=== PATIENT | female | born 1970 | race African-American/Black ===

== ENCOUNTER 2019-06-25 21:44 | Inpatient (IN) | payer MEDICAID ==
[~2019-06-25] VITALS: Ht 165.1 cm; Wt 78.0 kg
[2019-06-25 22:31] LABS: HEMATOCRIT. 39.6 % (36.0-48.0); HEMOGLOBIN. 12.5 g/dL (12.0-16.0); MEAN CORPUSCULAR HEMOGLOBIN 25.3 pg (28.0-32.0); MEAN PLATELET VOLUME 8.5 fl (7.4-10.4); PLATELET 267 x1000/uL (130-400); RED BLOOD CELL COUNT 4.95 mill/uL (4.2-5.4); RED CELL DISTRIBUTION WIDTH 13.8 % (11.6-14.6)
[2019-06-25 22:38] LABS: CHLORIDE 84 mEq/L (98-107)
[2019-06-25 22:41] LABS: HCG SCREEN NEGATIVE
[2019-06-25 22:42] LABS: ETHANOL BLOOD < 10 mg/dL
[2019-06-25 23:14] LABS: NUCLEATED RED BLOOD CELLS 2 /100 WBC; PLATELET ESTIMATE NORMAL
[2019-06-25 23:15] LABS: COLOR URINE YELLOW (YELLOW); KETONES URINE TRACE (NEGATIVE); LEUKOCYTE ESTERASE URINE NEGATIVE (NEGATIVE); NITRITE URINE NEGATIVE (NEGATIVE); OCCULT BLOOD URINE 1+ (NEGATIVE); PROTEIN URINE TRACE (NEGATIVE); SPECIFIC GRAVITY URINE 1.014 (1.005-1.030); UROBILINOGEN URINE 0.2 E.U./dL (0.2-1.0)
[2019-06-25] MEDS ORDERED: LORAZEPAM 2MG/ML CPJ IV ONE (23:30)
[2019-06-25] MEDS ORDERED: SODIUM CHLORIDE 3% 500ML IV SOLN IV ONE (23:30)
[2019-06-25] MEDS ORDERED: MIDAZOLAM HCL 2 MG/2 ML VIAL IM ONE (23:30)
[2019-06-25 23:31] LABS: CLARITY URINE SLIGHTLY HAZY (CLEAR)
[2019-06-25 23:36] LABS: *AMPHETAMINES SCREEN URINE NEGATIVE (NEGATIVE); *BARBITURATES SCREEN URINE NEGATIVE (NEGATIVE); *BENZODIAZEPINES SCREEN URINE NEGATIVE (NEGATIVE); *COCAINE SCREEN URINE NEGATIVE (NEGATIVE)
[2019-06-25 23:37] LABS: CANNABINOID URINE SCREEN NEGATIVE (NEGATIVE); METHADONE URINE SCREEN NEGATIVE (NEGATIVE); OPIATES URINE SCREEN NEGATIVE (NEGATIVE); PHENCYCLIDINE URINE SCREEN NEGATIVE (NEGATIVE)
[2019-06-25] MEDS ORDERED: SODIUM CHLORIDE 3% 100 ML IV NR (23:52)
[2019-06-26] VITALS (64 sets, daily range): BP systolic 44–183; BP diastolic 14–131
[2019-06-26] MEDS ORDERED: LORAZEPAM 2MG/ML CPJ IV ONE ×2 (01:30→02:30)
[2019-06-26] MEDS ORDERED: SODIUM CHLORIDE 0.9% 1,000 ML IV ONE (01:30)
[2019-06-26] MEDS ORDERED: FOLIC ACID 1 MG, THIAMINE HCL 100 MG, MVI, ADULT NO.1 10 ML in DEXTROSE 5% WATER 1,000 ML IV ONE ×4 (01:30)
[2019-06-26 01:39] LABS: CHLORIDE 87 mEq/L (98-107)
[2019-06-26] MEDS ORDERED: CHLORDIAZEPOXIDE 25MG CAPSULE PO ONE (01:45)
[2019-06-26] MEDS ORDERED: SODIUM CHLORIDE 3% 500ML IV SOLN IV ONE (02:45)
[2019-06-26 04:56] LABS: CHLORIDE 91 mEq/L (98-107)
[2019-06-26] MEDS ORDERED: SODIUM CHLORIDE 0.9% 1,000 ML IV SCH (07:24)
[2019-06-26] MEDS ORDERED: ONDANSETRON HCL 4MG/2ML INJ IV PRN (07:30)
[2019-06-26] MEDS ORDERED: CLONIDINE 0.1MG TABLET PO PRN (07:30)
[2019-06-26] MEDS ORDERED: IPRATROPIUM/ALBUTEROL 0.5-3(2.5)MG/3ML NEB HHN PRN (07:30)
[2019-06-26] MEDS ORDERED: ACETAMINOPHEN 325MG TABLET PO PRN (07:30)
[2019-06-26] MEDS ORDERED: SODIUM BICARBONATE 8.4% 1 MEQ/ML 50ML SYR IV NR (08:30)
[2019-06-26] MEDS ORDERED: LEVETIRACETAM 500MG PREMIX 100 ML IV SCH (09:00)
[2019-06-26 09:18] LABS: PHOSPHORUS 2.1 mg/dL (2.5-4.9)
[2019-06-26 09:29] LABS: BG BASE EXCESS -5.5 mmol/L (-2.0-2.0); BG CARBOXYHEMOGLOBIN 1.4 % (0.5-1.5); BG DEOXYHEMOGLOBIN 2.9 % (0.0-5.0); BG FRACTION INSPIRED OXYGEN 21; BG HCO3 ACT 15.3 mmol/L (22.0-26.0); BG METHEMOGLOBIN 0.1 % (0.0-1.5); BG OXYGEN SATURATION 97.1 % (92.0-98.5); BG OXYHEMOGLOBIN 95.6 % (94.0-97.0); BG PCO2 19.9 mmHg (35.0-45.0); BG PH 7.505 (7.350-7.450); BG PO2 87.5 mmHg (75.0-100.0); BG SAMPLE SITE LEFT BRACHIAL; BG TOTAL HEMOGLOBIN 13.1 g/dL (12.0-18.0); BG VENT MODE ROOM AIR
[2019-06-26] MEDS: ENOXAPARIN 40MG/0.4ML SYR SUBCUT SCH (09:55)
[2019-06-26] MEDS: CEFTRIAXONE 1 G PREMIX 50 ML IV SCH (09:55)
[2019-06-26] MEDS: LORAZEPAM 2MG/ML CPJ IV PRN ×2 (09:59→11:50)
[2019-06-26] MEDS ORDERED: POTASSIUM CHLORIDE INJ 40 MEQ in SODIUM CHLORIDE 0.9% 250 ML IV SCH (10:00)
[2019-06-26] MEDS ORDERED: DEXTROSE 50% WATER 50ML SYRINGE IV PRN (12:00)
[2019-06-26] MEDS ORDERED: SODIUM PHOS,M-BASIC-D-BASIC 20 MM in DEXT 5% WATER 243.3333 ML IV NR (12:00)
[2019-06-26] MEDS ORDERED: MAGNESIUM 4 G PREMIX 100 ML IV NR (12:00)
[2019-06-26] MEDS: INSULIN LISPRO 100 UNITS/ML SUBCUT SCH ×3 (12:00→21:00)
[2019-06-26] MEDS: BLOOD SUGAR DIAGNOSTIC STRIP TEST SCH ×3 (12:39→21:34)
[2019-06-26] MEDS ORDERED: DEXTROSE 5% WATER 1,000 ML IV SCH (13:00)
[2019-06-26] MEDS ORDERED: CHLORDIAZEPOXIDE 25MG CAPSULE PO SCH (14:00)
[2019-06-26] MEDS: PHENYTOIN SODIUM 100MG/2ML VIAL IV SCH ×2 (14:36→21:34)
[2019-06-26 14:46] LABS: BG BASE EXCESS -3.7 mmol/L (-2.0-2.0); BG CARBOXYHEMOGLOBIN 0.8 % (0.5-1.5); BG DEOXYHEMOGLOBIN 10.3 % (0.0-5.0); BG FRACTION INSPIRED OXYGEN 21%; BG HCO3 ACT 18.4 mmol/L (22.0-26.0); BG METHEMOGLOBIN 0.3 % (0.0-1.5); BG OXYGEN SATURATION 89.6 % (92.0-98.5); BG OXYHEMOGLOBIN 88.6 % (94.0-97.0); BG PCO2 25.7 mmHg (35.0-45.0); BG PH 7.472 (7.350-7.450); BG PO2 56.2 mmHg (75.0-100.0); BG SAMPLE SITE LEFT BRACHIAL; BG TOTAL HEMOGLOBIN 12.9 g/dL (12.0-18.0); BG VENT MODE ROOM AIR
[2019-06-26] MEDS ORDERED: LORAZEPAM 2MG/ML CPJ IV PRN (16:00)
[2019-06-26 16:18] LABS: CHLORIDE 104 mEq/L (98-107)
[2019-06-26] MEDS: FOLIC ACID 1MG TABLET PO SCH (17:51)
[2019-06-26] MEDS: MULTIVITAMINS,THER W-MINERALS TABLET PO SCH (17:51)
[2019-06-26] MEDS: THIAMINE HCL 100MG TABLET PO SCH (17:51)
[2019-06-26 23:18] LABS: CHLORIDE 105 mEq/L (98-107)
[2019-06-27] VITALS (84 sets, daily range): BP systolic 67–192; BP diastolic 35–146
[2019-06-27 05:35] LABS: BASOPHILS % 0.3 % (0.0-2.0); EOSINOPHILS % 0.1 % (0.0-5.0); HEMATOCRIT. 40.4 % (36.0-48.0); HEMOGLOBIN. 13.3 g/dL (12.0-16.0); LYMPHOCYTES % 23.2 % (20.0-50.0); MEAN CORPUSCULAR HEMOGLOBIN 25.2 pg (28.0-32.0); MEAN CORPUSCULAR VOLUME 76.6 fL (81.0-99.0); MEAN PLATELET VOLUME 8.5 fl (7.4-10.4); MONOCYTES % 3.7 % (2.0-8.0); NEUTROPHILS % 72.7 % (40.0-76.0); PLATELET 204 x1000/uL (130-400); RED BLOOD CELL COUNT 5.27 mill/uL (4.2-5.4); RED CELL DISTRIBUTION WIDTH 14.2 % (11.6-14.6)
[2019-06-27 05:48] LABS: CHLORIDE 105 mEq/L (98-107)
[2019-06-27 05:58] LABS: LDL CHOLESTEROL 56 mg/dL (5-100); PHOSPHORUS 3.2 mg/dL (2.5-4.9)
[2019-06-27 06:01] LABS: HDL CHOLESTEROL 105 mg/dL (40-59)
[2019-06-27] MEDS: BLOOD SUGAR DIAGNOSTIC STRIP TEST SCH ×4 (06:30→21:07)
[2019-06-27] MEDS ORDERED: POTASSIUM CHLORIDE 20MEQ TABLET SR PO SCH (06:30)
[2019-06-27] MEDS: INSULIN LISPRO 100 UNITS/ML SUBCUT SCH ×4 (06:31→21:00)
[2019-06-27] MEDS: PHENYTOIN SODIUM 100MG/2ML VIAL IV SCH ×3 (06:35→21:08)
[2019-06-27] MEDS ORDERED: PHENYTOIN SODIUM 1,000 MG in SODIUM CHLORIDE 0.9% 100 ML IV SCH (09:00)
[2019-06-27] MEDS: MULTIVITAMINS,THER W-MINERALS TABLET PO SCH (09:05)
[2019-06-27] MEDS: FOLIC ACID 1MG TABLET PO SCH (09:05)
[2019-06-27] MEDS: THIAMINE HCL 100MG TABLET PO SCH (09:05)
[2019-06-27] MEDS: ENOXAPARIN 40MG/0.4ML SYR SUBCUT SCH (09:06)
[2019-06-27] MEDS: CEFTRIAXONE 1 G PREMIX 50 ML IV SCH (09:15)
[2019-06-27 13:00] LABS: HEPATITIS B SURFACE ANTIGEN NEGATIVE
[2019-06-27 13:30] LABS: HEPATITIS A AB IGM NEGATIVE (NEGATIVE)
[2019-06-27 16:02] LABS: CHLORIDE 105 mEq/L (98-107)
[2019-06-28] VITALS (23 sets, daily range): BP systolic 75–126; BP diastolic 33–95
[2019-06-28 05:13] LABS: BASOPHILS % 0.5 % (0.0-2.0); HEMOGLOBIN. 12.6 g/dL (12.0-16.0); LYMPHOCYTES % 25.5 % (20.0-50.0); MEAN CORPUSCULAR HEMOGLOBIN 25.4 pg (28.0-32.0); MEAN CORPUSCULAR VOLUME 76.8 fL (81.0-99.0); MEAN PLATELET VOLUME 8.3 fl (7.4-10.4); MONOCYTES % 5.4 % (2.0-8.0); NEUTROPHILS % 67.6 % (40.0-76.0); PLATELET 169 x1000/uL (130-400); RED BLOOD CELL COUNT 4.94 mill/uL (4.2-5.4); RED CELL DISTRIBUTION WIDTH 14.1 % (11.6-14.6)
[2019-06-28 05:16] LABS: CHLORIDE 105 mEq/L (98-107)
[2019-06-28 05:23] LABS: PHOSPHORUS 3.9 mg/dL (2.5-4.9)
[2019-06-28] MEDS: PHENYTOIN SODIUM 100MG/2ML VIAL IV SCH (05:38)
[2019-06-28] MEDS: INSULIN LISPRO 100 UNITS/ML SUBCUT SCH ×2 (06:40→11:29)
[2019-06-28] MEDS: BLOOD SUGAR DIAGNOSTIC STRIP TEST SCH ×2 (06:40→11:28)
[2019-06-28] MEDS: CEFTRIAXONE 1 G PREMIX 50 ML IV SCH (08:59)
[2019-06-28] MEDS: FOLIC ACID 1MG TABLET PO SCH (08:59)
[2019-06-28] MEDS: THIAMINE HCL 100MG TABLET PO SCH (08:59)
[2019-06-28] MEDS: MULTIVITAMINS,THER W-MINERALS TABLET PO SCH (09:00)
[2019-06-28] MEDS: ENOXAPARIN 40MG/0.4ML SYR SUBCUT SCH (09:00)
[2019-06-28] MEDS ORDERED: PHEN100C4 MT (11:49)
== END 2019-06-28 13:45 | disposition still patient (30) | DRG 133 ==
LOC: ER 21:44 → EDBEDREQSVC 23:33 → EDBEDREQTM 23:37 → EDBEDREQ 23:37 → EDBEDREQTM 06-26 01:28 → EDBEDREQ 06-26 01:28 → EDBEDREQDT 06-26 01:28 → MICUSO 06-26 01:34 → EDBEDREQ 06-26 01:37 → EDBEDREQTM 06-26 01:37 → ENRESERV 06-26 04:48
PROVIDERS: ADMIT Internal Medicine; ATTEND Internal Medicine
DX: J96.01 Acute respiratory failure with hypoxia (principal); E87.4 Mixed disorder of acid-base balance; R56.9 Unspecified convulsions; E87.2 Acidosis; E83.39 Other disorders of phosphorus metabolism; E83.42 Hypomagnesemia; E87.1 Hypo-osmolality and hyponatremia; E88.09 Other disorders of plasma-protein metabolism, not elsewhere classified; E11.9 Type 2 diabetes mellitus without complications; D72.829 Elevated white blood cell count, unspecified; K70.9 Alcoholic liver disease, unspecified; K72.90 Hepatic failure, unspecified without coma; E87.6 Hypokalemia; F10.10 Alcohol abuse, uncomplicated; I10 Essential (primary) hypertension; R74.0 Nonspecific elevation of levels of transaminase and lactic acid dehydrogenase [LDH]
CPT/HCPCS: 36415; 36600; 70551; 71045; 76700; 80048; 80053; 80061; 80076; 80185; 80305; 80320; 81003; 82140; 82375; 82533; 82805; 82962; 83036; 83735; 83930; 83935; 84100; 84295; 84300; 84443; 84703; 85025; 86705; 86709; 86803; 87340; 92610; 93005; 93970; 99285; J0696; J1165; J1650; J1953; J2060; J2250; J3411; J3475; J3480; J3490; J7030; J7050; J7060; J7070; G0480